=== PATIENT | male | born 1940 | race African-American/Black ===

== ENCOUNTER 2017-11-17 05:03 | Inpatient (IN) ==
[2017-11-17] MEDS ORDERED: LACTULOSE 20 GM/30 ML UDCUP PO PRN (08:53)
[2017-11-17] MEDS ORDERED: DOCUSATE SODIUM 100 MG CAPSULE PO PRN (08:53)
[2017-11-17] MEDS: ONDANSETRON 4 MG/2 ML VIAL IV PRN ×2 (09:06→18:35)
[2017-11-17 11:16] LABS: Basophils % 0.6 % (0.0-0.8); Eosinophils % 0.1 % (0.00-10.9); Hemoglobin 13.1 GM/DL (14.0-18.0); Immature Granulocytes % 0.4 %; Immature Granulocytes Absolute 0.03 #; Lymphocytes # 0.5 10*3/uL (1.4-4.0); Mean Corpuscular Hemoglobin 24 PG (27-34); Mean Platelet Volume 11.1 FL (9.6-12.0); Monocytes # 0.2 10*3/uL (0.11-0.8); Monocytes % 2.5 % (1.7-12.7); Neutrophils # 6.4 10*3/uL (1.4-7.4); Neutrophils % 89.4 % (38.7-73.9); Platelet Count 267 T/CUMM (130-400); Red Blood Count 5.54 MC/CUMM (3.8-5.5); White Blood Count 7.2 T/CUMM (4-12)
[2017-11-17] MEDS: PANTOPRAZOLE 40 MG TABLET PO SCH (11:31)
[2017-11-17] MEDS: amLODIPine 10 MG TABLET PO SCH (11:31)
[2017-11-17 11:46] LABS: Albumin 3.5 G/DL (3.4-5.0); Bilirubin,Total 0.5 MG/DL (0.2-1.0); Calcium 9.8 MG/DL (8.5-10.1); Osmolality,Calculated 266.5 MOS/KG (273-304); Potassium 4.1 MMOL/L (3.5-5.1); Risk Ratio 3.74; Thyroid Stimulating Hormone 2.16 uIU/ml (0.358-3.74); Total Protein 8.1 G/DL (6.4-8.3)
[2017-11-17] MEDS: SODIUM CHLORIDE 0.9% 1,000 ML IV SCH ×2 (12:57→20:38)
[2017-11-17] MEDS: LOSARTAN 50 MG TABLET PO SCH (13:34)
[2017-11-17] MEDS: MORPHINE 4 MG/1 ML VIAL IV PRN ×2 (18:35→22:53)
[2017-11-17] MEDS ORDERED: PROMETHAZINE 25 MG/1 ML VIAL IM PRN (19:04)
[2017-11-17 19:43] LABS: Hematocrit 34.1 VOL% (42.0-52.0); Hemoglobin 11.2 GM/DL (14.0-18.0)
[2017-11-18 06:11] LABS: Basophils % 0.2 % (0.0-0.8); Hematocrit 27.8 VOL% (42.0-52.0); Hemoglobin 8.9 GM/DL (14.0-18.0); Immature Granulocytes % 0.4 %; Immature Granulocytes Absolute 0.04 #; Lymphocytes % 11.2 % (21.2-54.2); Mean Corpuscular Hemoglobin 24 PG (27-34); Mean Corpuscular Volume 74.5 FL (87-102); Mean Platelet Volume 12.3 FL (9.6-12.0); Monocytes % 11.6 % (1.7-12.7); Neutrophils # 6.9 10*3/uL (1.4-7.4); Neutrophils % 76.6 % (38.7-73.9); Platelet Count 245 T/CUMM (130-400); Red Blood Count 3.73 MC/CUMM (3.8-5.5); Red Cell Distribution Width 17.5 % (9.3-17.3)
[2017-11-18 06:25] LABS: Calcium 8.9 MG/DL (8.5-10.1); Osmolality,Calculated 289.5 MOS/KG (273-304); Potassium 4.5 MMOL/L (3.5-5.1)
[2017-11-18] MEDS ORDERED: SODIUM CHLORIDE 0.9% 1,000 ML IV PRN ×2 (08:04→08:32)
[2017-11-18] MEDS ORDERED: diphenhydrAMINE 50 MG/1 ML VIAL IV PRN (08:04)
[2017-11-18] MEDS ORDERED: ACETAMINOPHEN 325 MG TABLET PO PRN (08:04)
[2017-11-18] MEDS: amLODIPine 10 MG TABLET PO SCH (09:25)
[2017-11-18] MEDS: LOSARTAN 50 MG TABLET PO SCH (09:25)
[2017-11-18] MEDS: PANTOPRAZOLE 40 MG TABLET PO SCH (09:25)
[2017-11-18 16:18] LABS: Hematocrit 29.3 VOL% (42.0-52.0); Hemoglobin 9.9 GM/DL (14.0-18.0)
[2017-11-18] MEDS: SODIUM CHLORIDE 0.9% 1,000 ML IV SCH (16:29)
[2017-11-18 21:03] LABS: Hematocrit 29.6 VOL% (42.0-52.0)
[2017-11-19] MEDS: SODIUM CHLORIDE 0.9% 1,000 ML IV SCH ×4 (00:27→19:30)
[2017-11-19 07:04] LABS: Calcium 8.3 MG/DL (8.5-10.1); Potassium 3.9 MMOL/L (3.5-5.1)
[2017-11-19 08:22] LABS: Basophils % 0.2 % (0.0-0.8); Eosinophils # 0.2 10*3/uL (0.0-0.87); Eosinophils % 1.4 % (0.00-10.9); Hematocrit 28.5 VOL% (42.0-52.0); Hemoglobin 9.6 GM/DL (14.0-18.0); Immature Granulocytes % 0.4 %; Immature Granulocytes Absolute 0.04 #; Lymphocytes # 1.1 10*3/uL (1.4-4.0); Lymphocytes % 10.4 % (21.2-54.2); Mean Corpuscular HGB Conc 33.7 GM/DL (32-36); Mean Corpuscular Hemoglobin 26 PG (27-34); Mean Corpuscular Volume 77.2 FL (87-102); Mean Platelet Volume 11.9 FL (9.6-12.0); Monocytes # 1.4 10*3/uL (0.11-0.8); Monocytes % 13.8 % (1.7-12.7); Neutrophils # 7.7 10*3/uL (1.4-7.4); Neutrophils % 73.8 % (38.7-73.9); Platelet Count 182 T/CUMM (130-400); Red Blood Count 3.69 MC/CUMM (3.8-5.5); Red Cell Distribution Width 18.8 % (9.3-17.3); White Blood Count 10.4 T/CUMM (4-12)
[2017-11-19] MEDS: PANTOPRAZOLE 40 MG TABLET PO SCH (09:03)
[2017-11-19] MEDS: LOSARTAN 50 MG TABLET PO SCH (10:35)
[2017-11-19] MEDS: amLODIPine 10 MG TABLET PO SCH (10:36)
[2017-11-19 12:48] LABS: Basophils % 0.3 % (0.0-0.8); Eosinophils # 0.2 10*3/uL (0.0-0.87); Eosinophils % 1.5 % (0.00-10.9); Hematocrit 31.9 VOL% (42.0-52.0); Hemoglobin 10.2 GM/DL (14.0-18.0); Immature Granulocytes % 0.5 %; Immature Granulocytes Absolute 0.07 #; Lymphocytes # 1.2 10*3/uL (1.4-4.0); Lymphocytes % 9.7 % (21.2-54.2); Mean Corpuscular Hemoglobin 26 PG (27-34); Mean Corpuscular Volume 80.2 FL (87-102); Mean Platelet Volume 10.9 FL (9.6-12.0); Monocytes # 1.6 10*3/uL (0.11-0.8); Monocytes % 12.5 % (1.7-12.7); Neutrophils # 9.6 10*3/uL (1.4-7.4); Neutrophils % 75.5 % (38.7-73.9); Platelet Count 193 T/CUMM (130-400); Red Blood Count 3.98 MC/CUMM (3.8-5.5); Red Cell Distribution Width 18.9 % (9.3-17.3); White Blood Count 12.8 T/CUMM (4-12)
[2017-11-19] MEDS: MORPHINE 4 MG/1 ML VIAL IV PRN (21:20)
[2017-11-20 06:06] LABS: Basophils % 0.3 % (0.0-0.8); Eosinophils # 0.1 10*3/uL (0.0-0.87); Hematocrit 29.7 VOL% (42.0-52.0); Hemoglobin 9.4 GM/DL (14.0-18.0); Immature Granulocytes % 0.4 %; Immature Granulocytes Absolute 0.05 #; Lymphocytes # 1.4 10*3/uL (1.4-4.0); Lymphocytes % 11.7 % (21.2-54.2); Mean Corpuscular HGB Conc 31.6 GM/DL (32-36); Mean Corpuscular Hemoglobin 26 PG (27-34); Mean Corpuscular Volume 81.1 FL (87-102); Mean Platelet Volume 11.4 FL (9.6-12.0); Monocytes # 1.4 10*3/uL (0.11-0.8); Monocytes % 12.5 % (1.7-12.7); Neutrophils # 8.5 10*3/uL (1.4-7.4); Neutrophils % 74.1 % (38.7-73.9); Platelet Count 184 T/CUMM (130-400); Red Blood Count 3.66 MC/CUMM (3.8-5.5); Red Cell Distribution Width 18.8 % (9.3-17.3); White Blood Count 11.5 T/CUMM (4-12)
[2017-11-20 06:18] LABS: INR 1.1; Partial Thromboplastin Time 25.7 SECS (0-40)
[2017-11-20 06:33] LABS: Calcium 8.3 MG/DL (8.5-10.1)
[2017-11-20 06:34] LABS: Osmolality,Calculated 282.3 MOS/KG (273-304); Potassium 3.9 MMOL/L (3.5-5.1)
[2017-11-20] MEDS: LOSARTAN 50 MG TABLET PO SCH (08:57)
[2017-11-20] MEDS: amLODIPine 10 MG TABLET PO SCH (08:57)
[2017-11-20] MEDS: PANTOPRAZOLE 40 MG TABLET PO SCH (08:57)
[2017-11-20] MEDS: SODIUM CHLORIDE 0.9% 1,000 ML IV SCH (09:26)
[2017-11-20] MEDS ORDERED: COLCHICINE 0.6 MG TABLET PO PRN (09:34)
[2017-11-20] MEDS: COLCHICINE 0.6 MG TABLET PO SCH (20:27)
[2017-11-21] MEDS: MORPHINE 4 MG/1 ML VIAL IV PRN (00:40)
[2017-11-21] MEDS: SODIUM CHLORIDE 0.9% 1,000 ML IV SCH ×3 (01:30→22:14)
[2017-11-21] MEDS ORDERED: ASPIRIN EC 81 MG TABLET PO SCH (09:00)
[2017-11-21] MEDS ORDERED: TRIAMTERENE/HCTZ 37.5-25 MG TABLET PO SCH (09:00)
[2017-11-21] MEDS: COLCHICINE 0.6 MG TABLET PO SCH ×2 (10:24→21:00)
[2017-11-21] MEDS: LOSARTAN 50 MG TABLET PO SCH (10:24)
[2017-11-21] MEDS: amLODIPine 10 MG TABLET PO SCH (10:24)
[2017-11-21] MEDS: PANTOPRAZOLE 40 MG TABLET PO SCH (10:25)
[2017-11-22] MEDS: COLCHICINE 0.6 MG TABLET PO SCH (09:21)
[2017-11-22] MEDS: amLODIPine 10 MG TABLET PO SCH (09:21)
[2017-11-22] MEDS: PANTOPRAZOLE 40 MG TABLET PO SCH (09:22)
[2017-11-22] MEDS: LOSARTAN 50 MG TABLET PO SCH (09:22)
[2017-11-22 12:01] VITALS: BP 119/67
[2017-11-22] MEDS: SODIUM CHLORIDE 0.9% 1,000 ML IV SCH (15:27)
== END 2017-11-22 16:16 | disposition home or self-care (01) | DRG 436 ==
LOC: N.ED 05:03 → N.EDINP 07:12 → N.2E 12:25
PROVIDERS: ADMIT Internal Medicine; ATTEND Internal Medicine